=== PATIENT | male | born 1945 | race Caucasian/White ===

== ENCOUNTER 2023-08-29 13:44 | Outpatient (CLI) | payer OTHER, SELFPAY | END 2023-08-29 13:45 | disposition home or self-care (01) | LOC: RAD 13:49 | PROVIDERS: Visit Provider Chiropractor | DX: I25.9 Chronic ischemic heart disease, unspecified (principal); I35.0 Nonrheumatic aortic (valve) stenosis | CPT/HCPCS: 93306 ==